=== PATIENT | female | born 1955 | race Caucasian/White ===

== ENCOUNTER → 2019-08-11 | Outpatient (CLI) | payer BC | END | disposition home or self-care (01) | LOC: CVU 06:53 | PROVIDERS: ATTEND Physician Assistant Medical | DX: I08.2 Rheumatic disorders of both aortic and tricuspid valves (principal); R06.02 Shortness of breath | CPT/HCPCS: 93306 ==

== ENCOUNTER 2020-02-20 12:55 | Outpatient (CLI) | payer BC | END 2020-02-20 23:59 | disposition home or self-care (01) | LOC: CVU 12:55 | PROVIDERS: ATTEND Nurse Practitioner Family | DX: I35.8 Other nonrheumatic aortic valve disorders (principal); I11.0 Hypertensive heart disease with heart failure; I50.21 Acute systolic (congestive) heart failure | CPT/HCPCS: 93306 ==

== ENCOUNTER 2021-01-25 14:39 | Outpatient (CLI) | payer BC | END 2021-01-25 23:59 | disposition home or self-care (01) | LOC: CVU 14:39 | PROVIDERS: ATTEND Internal Medicine Cardiovascular Disease | DX: I11.0 Hypertensive heart disease with heart failure (principal); I50.21 Acute systolic (congestive) heart failure | CPT/HCPCS: 93306 ==